=== PATIENT | female | born 1985 | race African-American/Black ===

== ENCOUNTER 2017-01-19 22:44 | Emergency (ER) | payer MEDICAID ==
[~2017-01-19] VITALS: Ht 165.1 cm; Wt 100.0 kg
[2017-01-20] MEDS ORDERED: ACETAMINOPHEN 325MG TABLET PO ONE (00:45)
[2017-01-20 01:20] VITALS: BP 120/72
== END 2017-01-20 01:53 | disposition home or self-care (01) ==
LOC: ER 22:50 → EDBD 22:50 → ER 01-20 01:53
DX: B37.89 Other sites of candidiasis (principal); I10 Essential (primary) hypertension; F70 Mild intellectual disabilities; I50.9 Heart failure, unspecified; R56.9 Unspecified convulsions
CPT/HCPCS: 99283; Z7610

== ENCOUNTER 2017-01-22 20:07 | Emergency (ER) | payer MEDICAID ==
[~2017-01-22] VITALS: Ht 167.6 cm; Wt 72.0 kg
[2017-01-22 23:26] VITALS: BP 122/84
== END 2017-01-23 01:42 | disposition home or self-care (01) ==
LOC: ER 20:07
DX: B37.2 Candidiasis of skin and nail (principal)
CPT/HCPCS: 99283

== ENCOUNTER 2017-02-28 01:14 | Emergency (ER) | payer MEDICAID ==
[~2017-02-28] VITALS: Ht 162.6 cm; Wt 93.0 kg
[2017-02-28 02:25] VITALS: BP 132/81
[2017-02-28 02:35] LABS: CLARITY URINE CLOUDY (CLEAR); COLOR URINE DARK YELLOW (YELLOW); GLUCOSE URINE NEGATIVE (NEGATIVE); KETONES URINE 1+ (NEGATIVE); LEUKOCYTE ESTERASE URINE TRACE (NEGATIVE); NITRITE URINE NEGATIVE (NEGATIVE); OCCULT BLOOD URINE NEGATIVE (NEGATIVE); PROTEIN URINE TRACE (NEGATIVE); SPECIFIC GRAVITY URINE 1.031 (1.005-1.030)
[2017-02-28 03:11] LABS: BACTERIA URINE 1+; RBC URINE 0-2 /hpf (0-2); SQUAMOUS EPITHELIAL CELL URINE 1+ /lpf (RARE/1+); WBC URINE 0-2 /hpf (0-2)
== END 2017-02-28 05:56 | disposition left against medical advice (07) ==
LOC: ER 01:15
DX: R10.9 Unspecified abdominal pain (principal); F31.9 Bipolar disorder, unspecified
CPT/HCPCS: 81001; 81025; 99283

== ENCOUNTER 2017-05-27 19:04 | Emergency (ER) | payer MEDICAID ==
[~2017-05-27] VITALS: Ht 170.2 cm; Wt 64.0 kg
[2017-05-27 21:05] LABS: CARBON DIOXIDE 24 mEq/L (21-32); CHLORIDE 102 mEq/L (98-107); ETHANOL BLOOD < 10 mg/dL
[2017-05-27 21:06] LABS: CLARITY URINE CLEAR (CLEAR); COLOR URINE YELLOW (YELLOW); GLUCOSE URINE NEGATIVE (NEGATIVE); KETONES URINE 3+ (NEGATIVE); LEUKOCYTE ESTERASE URINE 1+ (NEGATIVE); NITRITE URINE NEGATIVE (NEGATIVE); OCCULT BLOOD URINE NEGATIVE (NEGATIVE); PH URINE 6.5 (4.5-8.0); PROTEIN URINE NEGATIVE (NEGATIVE); SPECIFIC GRAVITY URINE 1.023 (1.005-1.030)
[2017-05-27 21:17] LABS: *AMPHETAMINES SCREEN URINE NEGATIVE (NEGATIVE); *BARBITURATES SCREEN URINE NEGATIVE (NEGATIVE); *BENZODIAZEPINES SCREEN URINE NEGATIVE (NEGATIVE); *COCAINE SCREEN URINE NEGATIVE (NEGATIVE); CANNABINOID URINE SCREEN NEGATIVE (NEGATIVE); METHADONE URINE SCREEN NEGATIVE (NEGATIVE); OPIATES URINE SCREEN NEGATIVE (NEGATIVE); PHENCYCLIDINE URINE SCREEN NEGATIVE (NEGATIVE)
[2017-05-27 21:19] LABS: BASOPHILS % 0.2 % (0.0-2.0); EOSINOPHILS % 6.8 % (0.0-5.0); HEMATOCRIT. 31.1 % (36.0-48.0); HEMOGLOBIN. 10.3 g/dL (12.0-16.0); LYMPHOCYTES % 24.9 % (20.0-50.0); MEAN CORPUSCULAR HEMOGLOBIN 30.2 pg (28.0-32.0); MEAN CORPUSCULAR VOLUME 90.7 fL (81.0-99.0); MONOCYTES % 10.7 % (2.0-8.0); NEUTROPHILS % 57.4 % (40.0-76.0); PLATELET 276 x1000/uL (130-400); RED BLOOD CELL COUNT 3.43 mill/uL (4.2-5.4); RED CELL DISTRIBUTION WIDTH 13.7 % (11.6-14.6)
[2017-05-28] MEDS ORDERED: ACETAMINOPHEN 325MG TABLET PO ONE (00:15)
[2017-05-28 05:02] VITALS: BP 110/62
== END 2017-05-28 05:10 | disposition home or self-care (01) ==
LOC: ER 21:03
DX: O26.891 Other specified pregnancy related conditions, first trimester (principal); Z3A.08 8 weeks gestation of pregnancy; F41.9 Anxiety disorder, unspecified; R07.9 Chest pain, unspecified; F31.9 Bipolar disorder, unspecified; F20.9 Schizophrenia, unspecified; J45.909 Unspecified asthma, uncomplicated
CPT/HCPCS: 36415; 76801; 80053; 80305; 80307; 80329; 81001; 81025; 84443; 84484; 84702; 85025; 93005; 99285; G0482; Z7610